=== PATIENT | female | born 1930 | race Caucasian/White ===

== ENCOUNTER 2020-04-24 13:39 | Outpatient (CLI) | payer SELFPAY | END 2020-04-24 13:40 | disposition critical access hospital (66) | LOC: EMS 13:39 | PROVIDERS: ATTEND Surgery | DX: M25.551 Pain in right hip (principal) | CPT/HCPCS: A0425; A0429 ==

== ENCOUNTER 2020-04-24 14:18 | Inpatient (IN) | payer SELFPAY ==
--- NOTE | 2020-04-24 14:39 | ED Physician Documentation ---
History of Present Illness - Stated complaint Stated Complaint: GLF - History obtained from History obtained from: Patient, Family, EMS - Additonal information Additional information: Patient is brought to the emergency department by her daughter after sustaining a ground-level fall at home. Patient was in the bathroom and forgot to pull her pants up and tried to walk, the daughter states. The patient has been struggling with dementia for some time, but her symptoms have been getting worse and worse. Patient is starting to not remember the fall, even though it just happened within the last hour, the daughter states. Patient has mainly complained of right hip pain. Daughter does not know if the patient hit her head, but the patient did not have any spinal complaints or head complaints. No other complaints at this time. Patient is Spanish speaking only, and daughter translates for her peer Review of Systems Ten Systems: 10 systems reviewed and negative Constitutional: reports: Reviewed and negative Eyes: reports: Reviewed and negative Ears: reports: Reviewed and negative Nose: reports: Reviewed and negative Throat: reports: Reviewed and negative Cardiac: reports: Reviewed and negative Respiratory: reports: Reviewed and negative GI: reports: Reviewed and negative : reports: Reviewed and negative Skin: reports: Reviewed and negative Musculoskeletal: reports: Joint pain Neurologic: reports: Reviewed and negative Psychiatric: reports: Reviewed and negative Endocrine: reports: Reviewed and negative Immunocompromised: reports: Reviewed and negative PD PAST MEDICAL HISTORY - Present Medications Home Medications: Ambulatory Orders Medication Instructions Recorded Confirmed No Known Home Medications 04/24/20 04/24/20 - Allergies Allergies/Adverse Reactions: Allergies Allergy/AdvReac Type Severity Reaction Status Date / Time No Known Drug Allergies Allergy Verified 04/24/20 14:42 PD ED PE NORMAL - Vitals Vital signs reviewed: Yes - General General: No acute distress, Well developed/nourished, Other (Patient is awake and talking.) - HEENT HEENT: Atraumatic, PERRL, EOMI, Moist mucous membranes - Neck Neck: Supple, no meningeal sign, No bony TTP - Cardiac Cardiac: RRR, No murmur, Strong equal pulses - Respiratory Respiratory: No respiratory distress, Clear bilaterally - Abdomen Abdomen: Soft, Non tender, Non distended - Back Back: Other (Patient has tenderness over her left lateral rib cage) - Derm Derm: Normal color, Warm and dry, No rash - Extremities Extremities: No deformity, No edema, No calf tenderness / cord, Other (Tenderness over right posterior hip, especially with any movement of the hip.) - 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, No motor deficit, No sensory deficit, Normal speech - Psych Psych: Normal mood, Normal affect Results - Vitals Vitals: Oxygen O2 Source Room air - EKG (time done) 1514 Rate: Rate (enter#) (86) Rhythm: NSR [place]: Normal Intervals: Normal CT, Prolonged QT (borderline) QRS: Normal Ischemia: Normal ST segments Compare to prior EKG: Old EKG unavailable Computer interpretation: Agree with computer - Labs Labs: Laboratory Tests 04/24/20 04/24/20 04/24/20 15:50 15:50 15:50 WBC 9.7 RBC 4.64 Hgb 10.9 L Hct 36.8 L MCV 79.3 L MCH 23.5 L MCHC 29.6 L RDW 15.2 H Plt Count 220 MPV 9.9 Neut # (Auto) 8.1 H Lymph # (Auto) 1.0 L [place] # (Auto) 0.5 Eos # (Auto) 0.0 Baso # (Auto) 0.0 Absolute Nucleated RBC 0.00 Nucleated RBC % 0.0 Sodium 136 Potassium 4.0 Chloride 101 Carbon Dioxide 23 Anion Gap 12.0 BUN 21 H Creatinine 0.8 Estimated GFR (MDRD) 68 L Glucose 137 H Calcium 9.0 Total Bilirubin 0.9 AST 18 ALT 11 Alkaline Phosphatase 70 Total Protein 6.8 Albumin 3.7 Globulin 3.1 Albumin/Globulin Ratio 1.2 Lipase 29 Blood Type Recheck O POSITIVE - Rads (name of study) R hip xr Radiology: Final report received, EMP read indepedently, See rad report (infratrochanteric fx.) PD MEDICAL DECISION MAKING - ED course Complexity details: reviewed results, re-evaluated patient, considered differential, d/w patient ED course: The patient was worked up with EKG, labs, head CT and x-rays of the chest/ribs and right hip. Work-up was negative, except for R hip fx. I spoke with Dr. Fontenot, who was precast concrete ironworker for ortho, and after a lengthy discussion with the pt's daughter, it was decided that the pt would be admitted, though family was still somewhat uncertain as to whether they wanted operative repair. Case was discussed with Dr. Spear, the hospitalist precast concrete ironworker, who agreed to admit to her service, with Dr. Fontenot in consult. Pt was found to be feeling better after a dose of Dilaudid. Departure - Departure Disposition: [facility] DC/Xfer Clinical Impression: Hip fracture Qualifiers: Encounter type: initial encounter Fracture type: closed Laterality: right Qualified Code(s): S72.001A - Fracture of unspecified part of neck of right femur, initial encounter for closed fracture Condition: Serious Discharge Date/Time: 04/24/20 18:07
[2020-04-24] MEDS ORDERED: SODIUM CHLORIDE 0.9% 1,000 ML IV STA (15:06)
--- NOTE | 2020-04-24 15:41 | XRAY Report ---
PROCEDURE: Hip w/Pelvis 2-3V RT INDICATIONS: fall/pain TECHNIQUE: AP pelvis with lateral views of the right hip. COMPARISON: None. FINDINGS: Bones: There is an infratrochanteric fracture of the proximal right femur. This associated mild media l displacement and varus angulation. Pelvic ring appears intact. No definite suspicious bony lesions . Visualized osseous structures appear osteopenic. Soft tissues: The visualized bowel gas pattern is normal. No suspicious soft tissue calcifications. IMPRESSION: 1. Infratrochanteric fracture of the proximal right femur. Reviewed by: Biju Cotto MD on 04/24/2020 3:40 PM PDT Approved by: Biju Cotto MD on 04/24/2020 3:40 PM PDT Station ID: [id number]
--- NOTE | 2020-04-24 15:45 | XRAY Report ---
PROCEDURE: Ribs w/PA Chest LT INDICATIONS: fall/pain TECHNIQUE: 2 views of the left ribs were acquired, along with a single view chest. COMPARISON: None. FINDINGS: Surgical changes and devices: None. Bones and chest wall: No displaced rib fracture identified. No suspicious bony lesions. Overlying s oft tissues appear unremarkable. Lungs and pleura: There is mild interstitial prominence. No focal consolidation or bone contusions. No pleural effusions or pneumothorax. Mediastinum: Mediastinal contours appear within normal limits given rotation. Heart size is normal. IMPRESSION: 1. No displaced rib fracture identified. 2. Mild interstitial prominence in the lungs likely represents chronic changes, versus mild interstit ial edema. Reviewed by: Biju Cotto MD on 04/24/2020 3:43 PM PDT Approved by: Biju Cotto MD on 04/24/2020 3:43 PM PDT Station ID: [id number]
--- NOTE | 2020-04-24 15:49 | CT Report ---
PROCEDURE: HEAD WO INDICATIONS: fall/confusion, possible head injury TECHNIQUE: Noncontrast 5 mm thick angled axial sections acquired from the foramen magnum to the vertex. For rad iation dose reduction, the following was used: automated exposure control, adjustment of mA and/or k V according to patient size. COMPARISON: None. FINDINGS: Image quality: Excellent. CSF spaces: There is mild cerebral volume loss with prominence of ventricles and sulci. Basal cister ns are patent. No extra-axial fluid collections. Brain: No intracranial hemorrhage, mass, or mass effect. There are periventricular and subcortical w tyshawn matter hypodensities consistent with mild chronic small vessel ischemic changes. Armando-white anabela er interface appears preserved. Skull and face: Calvarium and visualized facial bones are intact, without suspicious lesions. Sinuses: Visualized sinuses demonstrate mild mucosal thickening in the ethmoid, sphenoid, and maxill alex sinuses with a sinus retention cyst or mucosal polyp in the inferior left maxillary sinus. There is also an air-fluid level within the sphenoid sinuses suggestive of acute sinusitis. Mastoid air mily ls are clear. IMPRESSION: 1. No acute intracranial abnormality. 2. Mild chronic white matter small vessel ischemic changes and cerebral volume loss. 3. Sinus mucosal disease demonstrated including an air-fluid level in the sphenoid sinuses suggestive of acute sinusitis. Reviewed by: Biju Cotto MD on 04/24/2020 3:48 PM PDT Approved by: Biju Cotto MD on 04/24/2020 3:48 PM PDT Station ID: [id number]
[2020-04-24 16:21] LABS: BASOPHILS % (AUTO) 0.3 %; EOSINOPHILS % (AUTO) 0.1 %; HGB - HEMOGLOBIN 10.9 g/dL (12.0-16.0); LYMPHOCYTES % (AUTO) 10.4 %; MEAN CORPUSCULAR HEMOGLOBIN 23.5 pg (27.0-31.0); MEAN CORPUSCULAR HGB CONC 29.6 g/dL (32.0-36.0); MEAN CORPUSCULAR VOLUME 79.3 fL (81.0-99.0); MEAN PLATELET VOLUME 9.9 fL (7.9-10.8); MONOCYTES # (AUTO) 0.5 10^3/uL (0.0-1.0); MONOCYTES % (AUTO) 5.2 %; NEUTROPHILS # (AUTO) 8.1 10^3/uL (1.5-6.6); NEUTROPHILS % (AUTO) 83.6 %; PLT - PLATELET COUNT 220 10^3/uL (130-450); RED BLOOD COUNT 4.64 10^6/uL (4.20-5.40); RED CELL DISTRIBUTION WIDTH 15.2 % (12.0-15.0); WHITE BLOOD COUNT 9.7 x10^3/uL (4.8-10.8)
[2020-04-24] MEDS ORDERED: HYDROmorphone 1 MG/ML CARPUJECT IVP STA (16:22)
[2020-04-24 16:29] LABS: ALBUMIN 3.7 g/dL (3.2-5.5); ALBUMIN/GLOBULIN RATIO 1.2 (1.0-2.2); BILIRUBIN,TOTAL 0.9 mg/dL (0.2-1.0); CREATININE 0.8 mg/dL (0.4-1.0); TOTAL PROTEIN 6.8 g/dL (6.7-8.2)
[2020-04-24] MEDS ORDERED: SODIUM CHLORIDE FLUSH 0.9% 10 ML SYRINGE IVP PRN (17:11)
[2020-04-24] MEDS ORDERED: ONDANSETRON 4 MG/2 ML VIAL IVP PRN (17:11)
[2020-04-24] MEDS ORDERED: oxyCODONE 5 MG TABLET PO PRN (17:11)
--- NOTE | 2020-04-24 17:23 | HISTORY & PHYSICAL EXAMINATION ---
Chief Complaint - Chief Complaint Chief Complaint: fall History of Present Illness - Admitted From Admitted From:: ER - History Obtained From Records Reviewed: [facility] History obtained from: pt's daughter Exam Limitations: language, pt speak togolese and hx of dementia - History of Present Illness HPI Comment/Other: This is a 89 years old female with a past medical history significant for dementia without home medications, who bought by her daughter to ER complain of right hip and pelvic pain. Patient is Bulgarian speaking only, and daughter translates for her peer to help provider medical hx. Patient was in the bathroom and forgot to pull her pants up and tried to walk, and had a fall. pt denies loss of conscience, denies headache or other pain. CAT scan of the head, chest x-ray are unremarkable. X-ray of the hip reveals infratrochanteric fracture of the proximal right femur. Routine laboratory test show hemoglobin 10.9 otherwise unremarkable. Patient is afebrile and hemodynamic stable at this time. ER already called surgeon. pt's daughter report Surgeon already discussed with her for the care plan. Pt's daughter state because pt's advanced dementia, poor quality of life, and advanced age, now pt has a fall, she choose no surgery for pt, and hope to have hospice care for pt. History - Past Medical History Cardiovascular: reports: None Respiratory: reports: None Neuro: reports: Dementia Endocrine/Autoimmune: reports: None GI: reports: None LAY OUT TECHNICIAN: reports: None : reports: None HEENT: reports: None Psych: reports: None Musculoskeletal: reports: None Derm: reports: None MRSA Hx?: No - Family & Social History Family History Comment/Other: Patient could not provide family medical history because of her medical condition Meds/Allgy - Home Medications Home Medications: Ambulatory Orders Medication Instructions Recorded Confirmed No Known Home Medications 04/24/20 04/24/20 - Allergies Allergies/Adverse Reactions: Allergies Allergy/AdvReac Type Severity Reaction Status Date / Time No Known Drug Allergies Allergy Verified 04/24/20 14:42 Review of Systems - Other Findings Other Findings: Because the patient has advanced dementia, very poor historian, and language banner, pt could not provide ROS Exam - Vital Signs Vital Signs: Vital Signs x48h Temp Pulse Resp BP Pulse Ox 04/24/20 16:09 36.3 C L 90 20 131/85 H 99 04/24/20 14:20 37.5 C 82 16 116/71 98 - Physical Exam General Appearance: positive: No acute distress, Alert. negative: Lethargic Eyes Bilateral: positive: Normal inspection, No lid inflammation ENT: positive: ENT inspection nml, No signs of dehydration. negative: Purulent nasal drainage Neck: positive: Nml inspection, Thyroid nml, Trachea midline. negative: Thyromegaly, Stiff neck, Tracheal deviation Respiratory: positive: Chest non-tender, No respiratory distress, Breath sounds nml. negative: Wheezes, Rales, Rhonchi Cardiovascular: positive: Regular rate & rhythm, No murmur. negative: Irregularly irregular, Tachycardia, Bradycardia, Systolic murmur, Diastolic murmur Peripheral Pulses: positive: 2+ Abdomen: positive: Non-tender, Nml bowel sounds, No distention. negative: Tenderness, Guarding, Rebound Back: positive: Nml inspection Skin: positive: Color nml, No rash, Warm, Dry. negative: Cyanosis, Diaphoresis, Pallor Extremities: positive: Nml appearance. negative: Calf tenderness Neurologic/Psychiatric: positive: Sensation nml. negative: Weakness, Sensory loss, Facial droop, Slurred/abnml speech Conclusion/Plan - Problem List (1) Hip fracture, right Conclusion/Plan: Patient has mechanical fall in the home. X-rays show patient has a right femur head fracture. Patient has history of significantly dementia. Patient's daughter choose no surgery for patient, will focus pain control, comfort care. she hope to have hospice care for pt. Pain control, consult with social insurance adviser. (2) Dementia Conclusion/Plan: Patient has significant dementia, Poor quality of life, Now patient has a fall. We will continue support patient, discussed with the patient and the daughter for the care plan. (3) Encounter for hospice care Conclusion/Plan: discussed with pt's daughter for the care plan. Patient has significantly dementia, poor quality of life, advanced age, and had a fall. Patient's daughter want no surgery for pt and hope to have the hospice care for patient, but this is a late Monday, and No hospice care in the weekend. now focus on pain control, comfortable caring for patient. Consult with social work, will referral to hospice care. hopeful discharge patient with hospice care in Monday next week - Lab Results Fish Bones: 04/24/20 15:50 04/24/20 15:50 Core Measures - Anticipated LOS I expect patient to be DC'd or transferred within 96 hours.: Yes - DVT/VTE - Prophylaxis VTE/DVT Device ordered at admit?: Yes VTE/DVT Prophylaxis med ordered at admit?: Yes
[2020-04-24 17:51] LABS: ABSOLUTE RETICS # AUTO 0.033 10^6/uL (0.020-0.110); RED BLOOD COUNT 4.28 10^6/uL (4.20-5.40)
[2020-04-24 17:55] LABS: INR 1.1 (0.8-1.2); PT - PROTHROMBIN TIME 12.3 secs (9.9-12.6)
--- NOTE | 2020-04-24 18:07 | PHARMACY PROGRESS NOTE ---
- Best Possible Medication History Admit Date and Time: 04/24/20 1711 Processed by: Nursing Medication History completed: Yes As the person ultimately responsible for medication therapy, providers are able to order a medication from an existing home medication list in [facility] via the "Reconcile Routine" prior to Confirmation of that medication by information support project manager. Such practice is discouraged except when the physician, in their clinical judgment, deems that a medical need exists for a medication without regard to previous use.
[2020-04-24 18:14] LABS: % IRON SATURATION 17 % (20-50); IRON 67 ug/dL (28-170); TOTAL IRON BINDING CAPACITY 399 ug/dL (250-450); TRANSFERRIN 285 mg/dL (192-382)
[2020-04-24 18:43] LABS: FERRITIN 10.7 ng/mL (11.0-306.8)
[2020-04-24] MEDS: LACTATED RINGERS 1,000 ML IV SCH (19:48)
[2020-04-24] MEDS: MORPHINE 2 MG/ML CARPUJECT IVP PRN (21:25)
[2020-04-24 22:30] LABS: BILIRUBIN,URINE NEGATIVE (NEGATIVE); GLUCOSE, URINE (UA) NEGATIVE (NEGATIVE); KETONES,URINE (UA) 40 mg/dL (NEGATIVE); LEUKOCYTE ESTERASE, URINE NEGATIVE (NEGATIVE); NITRITE,URINE NEGATIVE (NEGATIVE); OCCULT BLOOD,URINE TRACE-INTA (NEGATIVE); PROTEIN,URINE NEGATIVE (NEGATIVE); UROBILINOGEN,URINE 0.2 (NORMAL) E.U./dL (NORMAL)
[2020-04-24 22:33] LABS: CLARITY,URINE CLOUDY (CLEAR)
[2020-04-24 22:35] LABS: BACTERIA,URINE Many /HPF (None Seen); RBC,URINE 0-5 /HPF (0-5); SQUAMOUS EPITHELIAL CELL,UR NONE SEEN (<= Few)
[2020-04-24] MEDS: SODIUM CHLORIDE FLUSH 0.9% 10 ML SYRINGE IVP SCH (23:49)
[2020-04-25] MEDS: LACTATED RINGERS 1,000 ML IV SCH ×2 (05:31→15:23)
[2020-04-25] MEDS: MORPHINE 2 MG/ML CARPUJECT IVP PRN ×2 (05:34→14:00)
[2020-04-25 06:35] LABS: BASOPHILS % (AUTO) 0.3 %; EOSINOPHILS % (AUTO) 0.2 %; HGB - HEMOGLOBIN 9.1 g/dL (12.0-16.0); LYMPHOCYTES # (AUTO) 1.8 10^3/uL (1.5-3.5); LYMPHOCYTES % (AUTO) 28.1 %; MEAN CORPUSCULAR HEMOGLOBIN 23.9 pg (27.0-31.0); MEAN CORPUSCULAR VOLUME 79.5 fL (81.0-99.0); MEAN PLATELET VOLUME 9.7 fL (7.9-10.8); MONOCYTES # (AUTO) 0.7 10^3/uL (0.0-1.0); MONOCYTES % (AUTO) 10.4 %; NEUTROPHILS # (AUTO) 3.8 10^3/uL (1.5-6.6); NEUTROPHILS % (AUTO) 60.8 %; PLT - PLATELET COUNT 168 10^3/uL (130-450); RED BLOOD COUNT 3.81 10^6/uL (4.20-5.40); RED CELL DISTRIBUTION WIDTH 15.3 % (12.0-15.0); WHITE BLOOD COUNT 6.2 x10^3/uL (4.8-10.8)
[2020-04-25 06:44] LABS: CALCIUM 8.3 mg/dL (8.5-10.3); CREATININE 0.7 mg/dL (0.4-1.0)
--- NOTE | 2020-04-25 07:25 | PROVIDER PROGRESS NOTE ---
Subjective - Prog Note Date Prog Note Date: 04/25/20 Prog Note Time: 07:25 - Subjective Subjective: Seen by orthopedics. Family still declines surgery. Comfort measures only.Family decided this after she was admitted. Unfortunately hospice is not available over the weekend for urgent/emergent openings. Current Medications - Current Medications Current Medications: Active Medications Lactated Ringer's (Lr) 1,000 mls @ 100 mls/hr IV .Q10H [facility] Last Admin: 04/25/20 05:31 Dose: 100 mls/hr Documented by: Morphine Sulfate (Morphine (Carpuject)) 2 mg IVP Q2HR PRN PRN Reason: PAIN Last Admin: 04/25/20 05:34 Dose: 2 mg Documented by: Morphine Sulfate (Roxanol) 5 mg PO Q4HR PRN PRN Reason: PAIN Ondansetron HCl (Zofran Inj) 4 mg IVP Q6HR PRN PRN Reason: Nausea / Vomiting Last Admin: 04/24/20 20:44 Dose: 4 mg Documented by: Oxycodone HCl (Roxicodone) 5 mg PO Q4HR PRN PRN Reason: Pain 5 to 7 Sodium Chloride (Normal Saline Flush 0.9%) 10 ml IVP PRN PRN PRN Reason: NEEDED PER PROVIDER ORDERS Sodium Chloride (Normal Saline Flush 0.9%) 10 ml IVP 0100,0900,1700 [facility] Last Admin: 04/24/20 23:49 Dose: Not Given Documented by: No Known Home Medications 04/24/20 Objective - Vital Signs/Intake & Output Reviewed Vital Signs: Yes Vital Signs: Vital Signs x48h Temp Pulse Pulse Resp BP Pulse Ox 04/25/20 05:02 36.8 C 97 16 95 04/24/20 23:34 36.8 C 97 16 108/63 95 Intake & Output: Intake & Output 04/22/20 04/23/20 04/24/20 04/25/20 23:59 23:59 23:59 23:59 Intake Total 1000 971.667 Output Total 280 175 Balance 720 796.667 - Objective General Appearance: positive: Mild distress (Pain seems to be controlled by the small amount given to her of pain medicines) Eyes Bilateral: positive: PERRL, EOMI ENT: positive: Pharynx nml Neck: positive: No JVD Respiratory: positive: Chest non-tender, No respiratory distress. negative: Wheezes, Rales, Rhonchi Cardiovascular: positive: Regular rate & rhythm. negative: Gallop/S4, Friction rub Abdomen: positive: Non-tender, No organomegaly, Nml bowel sounds, No distention Skin: positive: Warm, Dry, Pallor Extremities: positive: Other (Cannot move right hip. Externally rotated. Shortened.Comfortable unless you move her.) Neurologic/Psychiatric: positive: CN's nml (2-12), Motor nml, Disoriented to person, Disoriented to place, Disoriented to time - Lab Results Fish Bones: 04/25/20 06:10 04/25/20 06:30 Other Labs: Lab Results x24hrs 04/25/20 04/25/20 04/24/20 Range/Units 06:30 06:10 22:05 WBC 6.2 (4.8-10.8) x10^3/uL RBC 3.81 L (4.20-5.40) 10^6/uL Hgb 9.1 L (12.0-16.0) g/dL Hct 30.3 L (37.0-47.0) % MCV 79.5 L (81.0-99.0) fL MCH 23.9 L (27.0-31.0) pg MCHC 30.0 L (32.0-36.0) g/dL RDW 15.3 H (12.0-15.0) % Plt Count 168 (130-450) 10^3/uL MPV 9.7 (7.9-10.8) fL Reticulocyte % (Auto) (0.5-2.3) % Neut # (Auto) 3.8 (1.5-6.6) 10^3/uL Lymph # (Auto) 1.8 (1.5-3.5) 10^3/uL [place] # (Auto) 0.7 (0.0-1.0) 10^3/uL Eos # (Auto) 0.0 (0.0-0.7) 10^3/uL Baso # (Auto) 0.0 (0.0-0.1) 10^3/uL Absolute Nucleated RBC 0.00 x10^3/uL Nucleated RBC % 0.0 /100WBC Absolute Retic (0.020-0.110) 10^6/uL PT (9.9-12.6) secs INR (0.8-1.2) Sodium 137 (135-145) mmol/L Potassium 4.0 (3.5-5.0) mmol/L Chloride 106 (101-111) mmol/L Carbon Dioxide 18 L (21-32) mmol/L Anion Gap 13.0 (6-13) BUN 17 (6-20) mg/dL Creatinine 0.7 (0.4-1.0) mg/dL Estimated GFR (MDRD) 79 L (>89) Glucose 116 H (70-100) mg/dL Calcium 8.3 L (8.5-10.3) mg/dL Iron (28-170) ug/dL TIBC (250-450) ug/dL % Saturation (20-50) % Transferrin (192-382) mg/dL Ferritin (11.0-306.8) ng/mL Total Bilirubin (0.2-1.0) mg/dL AST (10-42) IU/L ALT (10-60) IU/L Alkaline Phosphatase (42-121) IU/L Lactate Dehydrogenase (91-225) IU/L Total Protein (6.7-8.2) g/dL Albumin (3.2-5.5) g/dL Globulin (2.1-4.2) g/dL Albumin/Globulin Ratio (1.0-2.2) Lipase (22-51) U/L Vitamin B12 (180-914) pg/mL Urine Color YELLOW Urine Clarity CLOUDY (CLEAR) Urine pH 6.0 (5.0-7.5) PH Ur Specific [place] 1.025 (1.002-1.030) Urine Protein NEGATIVE (NEGATIVE) mg/dL Urine Glucose (UA) NEGATIVE (NEGATIVE) mg/dL Urine Ketones 40 H (NEGATIVE) mg/dL Urine Occult Blood TRACE-INTA (NEGATIVE) Urine Nitrite NEGATIVE (NEGATIVE) Urine Bilirubin NEGATIVE (NEGATIVE) Urine Urobilinogen 0.2 (NORMAL) (NORMAL) E.U./dL Ur Leukocyte Esterase NEGATIVE (NEGATIVE) Urine RBC 0-5 (0-5) /HPF Urine WBC 4-5 (0-5) /HPF Ur Squamous Epith Cells NONE SEEN (<= Few) Urine Bacteria Many H (None Seen) /HPF Urine Culture Comments INDICATED Blood Type Blood Type Recheck Antibody Screen 04/24/20 04/24/20 04/24/20 Range/Units 17:42 17:42 17:42 WBC (4.8-10.8) x10^3/uL RBC (4.20-5.40) 10^6/uL Hgb (12.0-16.0) g/dL Hct (37.0-47.0) % MCV (81.0-99.0) fL MCH (27.0-31.0) pg MCHC (32.0-36.0) g/dL RDW (12.0-15.0) % Plt Count (130-450) 10^3/uL MPV (7.9-10.8) fL Reticulocyte % (Auto) (0.5-2.3) % Neut # (Auto) (1.5-6.6) 10^3/uL Lymph # (Auto) (1.5-3.5) 10^3/uL [place] # (Auto) (0.0-1.0) 10^3/uL Eos # (Auto) (0.0-0.7) 10^3/uL Baso # (Auto) (0.0-0.1) 10^3/uL Absolute Nucleated RBC x10^3/uL Nucleated RBC % /100WBC Absolute Retic (0.020-0.110) 10^6/uL PT (9.9-12.6) secs INR (0.8-1.2) Sodium (135-145) mmol/L Potassium (3.5-5.0) mmol/L Chloride (101-111) mmol/L Carbon Dioxide (21-32) mmol/L Anion Gap (6-13) BUN (6-20) mg/dL Creatinine (0.4-1.0) mg/dL Estimated GFR (MDRD) (>89) Glucose (70-100) mg/dL Calcium (8.5-10.3) mg/dL Iron 67 (28-170) ug/dL TIBC 399 (250-450) ug/dL % Saturation 17 L (20-50) % Transferrin 285 (192-382) mg/dL Ferritin 10.7 L (11.0-306.8) ng/mL Total Bilirubin (0.2-1.0) mg/dL AST (10-42) IU/L ALT (10-60) IU/L Alkaline Phosphatase (42-121) IU/L Lactate Dehydrogenase 127 (91-225) IU/L Total Protein (6.7-8.2) g/dL Albumin (3.2-5.5) g/dL Globulin (2.1-4.2) g/dL Albumin/Globulin Ratio (1.0-2.2) Lipase (22-51) U/L Vitamin B12 180 (180-914) pg/mL Urine Color Urine Clarity (CLEAR) Urine pH (5.0-7.5) PH Ur Specific [place] (1.002-1.030) Urine Protein (NEGATIVE) mg/dL Urine Glucose (UA) (NEGATIVE) mg/dL Urine Ketones (NEGATIVE) mg/dL Urine Occult Blood (NEGATIVE) Urine Nitrite (NEGATIVE) Urine Bilirubin (NEGATIVE) Urine Urobilinogen (NORMAL) E.U./dL Ur Leukocyte Esterase (NEGATIVE) Urine RBC (0-5) /HPF Urine WBC (0-5) /HPF Ur Squamous Epith Cells (<= Few) Urine Bacteria (None Seen) /HPF Urine Culture Comments Blood Type Blood Type Recheck Antibody Screen 04/24/20 04/24/20 04/24/20 Range/Units 17:42 17:42 17:42 WBC (4.8-10.8) x10^3/uL RBC 4.28 (4.20-5.40) 10^6/uL Hgb (12.0-16.0) g/dL Hct (37.0-47.0) % MCV (81.0-99.0) fL MCH (27.0-31.0) pg MCHC (32.0-36.0) g/dL RDW (12.0-15.0) % Plt Count (130-450) 10^3/uL MPV (7.9-10.8) fL Reticulocyte % (Auto) 0.77 (0.5-2.3) % Neut # (Auto) (1.5-6.6) 10^3/uL Lymph # (Auto) (1.5-3.5) 10^3/uL [place] # (Auto) (0.0-1.0) 10^3/uL Eos # (Auto) (0.0-0.7) 10^3/uL Baso # (Auto) (0.0-0.1) 10^3/uL Absolute Nucleated RBC x10^3/uL Nucleated RBC % /100WBC Absolute Retic 0.033 (0.020-0.110) 10^6/uL PT 12.3 (9.9-12.6) secs INR 1.1 (0.8-1.2) Sodium (135-145) mmol/L Potassium (3.5-5.0) mmol/L Chloride (101-111) mmol/L Carbon Dioxide (21-32) mmol/L Anion Gap (6-13) BUN (6-20) mg/dL Creatinine (0.4-1.0) mg/dL Estimated GFR (MDRD) (>89) Glucose (70-100) mg/dL Calcium (8.5-10.3) mg/dL Iron (28-170) ug/dL TIBC (250-450) ug/dL % Saturation (20-50) % Transferrin (192-382) mg/dL Ferritin (11.0-306.8) ng/mL Total Bilirubin (0.2-1.0) mg/dL AST (10-42) IU/L ALT (10-60) IU/L Alkaline Phosphatase (42-121) IU/L Lactate Dehydrogenase (91-225) IU/L Total Protein (6.7-8.2) g/dL Albumin (3.2-5.5) g/dL Globulin (2.1-4.2) g/dL Albumin/Globulin Ratio (1.0-2.2) Lipase (22-51) U/L Vitamin B12 (180-914) pg/mL Urine Color Urine Clarity (CLEAR) Urine pH (5.0-7.5) PH Ur Specific [place] (1.002-1.030) Urine Protein (NEGATIVE) mg/dL Urine Glucose (UA) (NEGATIVE) mg/dL Urine Ketones (NEGATIVE) mg/dL Urine Occult Blood (NEGATIVE) Urine Nitrite (NEGATIVE) Urine Bilirubin (NEGATIVE) Urine Urobilinogen (NORMAL) E.U./dL Ur Leukocyte Esterase (NEGATIVE) Urine RBC (0-5) /HPF Urine WBC (0-5) /HPF Ur Squamous Epith Cells (<= Few) Urine Bacteria (None Seen) /HPF Urine Culture Comments Blood Type O POSITIVE Blood Type Recheck Antibody Screen NEGATIVE 04/24/20 04/24/20 04/24/20 Range/Units 15:50 15:50 15:50 WBC 9.7 (4.8-10.8) x10^3/uL RBC 4.64 (4.20-5.40) 10^6/uL Hgb 10.9 L (12.0-16.0) g/dL Hct 36.8 L (37.0-47.0) % MCV 79.3 L (81.0-99.0) fL MCH 23.5 L (27.0-31.0) pg MCHC 29.6 L (32.0-36.0) g/dL RDW 15.2 H (12.0-15.0) % Plt Count 220 (130-450) 10^3/uL MPV 9.9 (7.9-10.8) fL Reticulocyte % (Auto) (0.5-2.3) % Neut # (Auto) 8.1 H (1.5-6.6) 10^3/uL Lymph # (Auto) 1.0 L (1.5-3.5) 10^3/uL [place] # (Auto) 0.5 (0.0-1.0) 10^3/uL Eos # (Auto) 0.0 (0.0-0.7) 10^3/uL Baso # (Auto) 0.0 (0.0-0.1) 10^3/uL Absolute Nucleated RBC 0.00 x10^3/uL Nucleated RBC % 0.0 /100WBC Absolute Retic (0.020-0.110) 10^6/uL PT (9.9-12.6) secs INR (0.8-1.2) Sodium 136 (135-145) mmol/L Potassium 4.0 (3.5-5.0) mmol/L Chloride 101 (101-111) mmol/L Carbon Dioxide 23 (21-32) mmol/L Anion Gap 12.0 (6-13) BUN 21 H (6-20) mg/dL Creatinine 0.8 (0.4-1.0) mg/dL Estimated GFR (MDRD) 68 L (>89) Glucose 137 H (70-100) mg/dL Calcium 9.0 (8.5-10.3) mg/dL Iron (28-170) ug/dL TIBC (250-450) ug/dL % Saturation (20-50) % Transferrin (192-382) mg/dL Ferritin (11.0-306.8) ng/mL Total Bilirubin 0.9 (0.2-1.0) mg/dL AST 18 (10-42) IU/L ALT 11 (10-60) IU/L Alkaline Phosphatase 70 (42-121) IU/L Lactate Dehydrogenase (91-225) IU/L Total Protein 6.8 (6.7-8.2) g/dL Albumin 3.7 (3.2-5.5) g/dL Globulin 3.1 (2.1-4.2) g/dL Albumin/Globulin Ratio 1.2 (1.0-2.2) Lipase 29 (22-51) U/L Vitamin B12 (180-914) pg/mL Urine Color Urine Clarity (CLEAR) Urine pH (5.0-7.5) PH Ur Specific [place] (1.002-1.030) Urine Protein (NEGATIVE) mg/dL Urine Glucose (UA) (NEGATIVE) mg/dL Urine Ketones (NEGATIVE) mg/dL Urine Occult Blood (NEGATIVE) Urine Nitrite (NEGATIVE) Urine Bilirubin (NEGATIVE) Urine Urobilinogen (NORMAL) E.U./dL Ur Leukocyte Esterase (NEGATIVE) Urine RBC (0-5) /HPF Urine WBC (0-5) /HPF Ur Squamous Epith Cells (<= Few) Urine Bacteria (None Seen) /HPF Urine Culture Comments Blood Type Blood Type Recheck O POSITIVE Antibody Screen ABX Reporting Has patient been on IV antibiotics over the past 48 hours?: No Assessment/Plan - Problem List (1) Hip fracture, right Impression: 04/25: one dose of MS last night and one this am. she does cry out Move her leg. Plan: pain control and return to home since daughter (POA) has declined surgery. Social work consult written for. 04/24:Patient has mechanical fall in the home. X-rays show patient has a right femur head fracture. Patient has history of significantly dementia. Patient's daughter choose no surgery for patient, will focus pain control, comfort care. she hope to have hospice care for pt. Pain control, consult with school social worker. (2) Dementia Conclusion/Plan: 04/25:With reduced quality of life over time. Family is focusing on comfort measures only.No behavioral disturbances 04/24:Patient has significant dementia, Poor quality of life, Now patient has a fall. We will continue support patient, discussed with the patient and the daughter for the care plan. (3) Encounter for hospice care Conclusion/Plan: 04/25: Social work and case management are working on her case. If she has been living in this country for at least 5 years, she can have access to Medicaid. With Medicaid pending she can be accepted to hospice. If she is not been here for 5 years she may not be able to get hospice but will have to work with [employer], etc. to set up equipment at home. We will wait to hear from case managem ent and social work. 04/24: discussed with pt's daughter for the care plan. Patient has significantly dementia, poor quality of life, advanced age, and had a fall. Patient's daughter want no surgery for pt and hope to have the hospice care for patient, but this is a late Monday, and No hospice care in the weekend. now focus on pain control, comfortable caring for patient. Consult with social work, will referral to hospice care. hopeful discharge patient with hospice care in Monday next week
[2020-04-25] MEDS: SODIUM CHLORIDE FLUSH 0.9% 10 ML SYRINGE IVP SCH ×2 (10:10→16:24)
[2020-04-25 15:39] VITALS: BP 111/60
[2020-04-26] MEDS: SODIUM CHLORIDE FLUSH 0.9% 10 ML SYRINGE IVP SCH ×3 (01:00→16:03)
[2020-04-26] MEDS: LACTATED RINGERS 1,000 ML IV SCH ×3 (01:00→22:30)
[2020-04-26 08:02] LABS: BASOPHILS % (AUTO) 0.5 %; EOSINOPHILS % (AUTO) 0.4 %; HGB - HEMOGLOBIN 8.8 g/dL (12.0-16.0); LYMPHOCYTES # (AUTO) 1.4 10^3/uL (1.5-3.5); LYMPHOCYTES % (AUTO) 25.7 %; MEAN CORPUSCULAR HGB CONC 30.4 g/dL (32.0-36.0); MEAN CORPUSCULAR VOLUME 78.7 fL (81.0-99.0); MEAN PLATELET VOLUME 10.1 fL (7.9-10.8); MONOCYTES # (AUTO) 0.5 10^3/uL (0.0-1.0); MONOCYTES % (AUTO) 9.6 %; NEUTROPHILS # (AUTO) 3.5 10^3/uL (1.5-6.6); NEUTROPHILS % (AUTO) 62.9 %; PLT - PLATELET COUNT 148 10^3/uL (130-450); RED BLOOD COUNT 3.67 10^6/uL (4.20-5.40); RED CELL DISTRIBUTION WIDTH 15.2 % (12.0-15.0); WHITE BLOOD COUNT 5.6 x10^3/uL (4.8-10.8)
[2020-04-26 08:11] LABS: CALCIUM 8.5 mg/dL (8.5-10.3); CREATININE 0.6 mg/dL (0.4-1.0)
--- NOTE | 2020-04-26 08:23 | CONSULTATION NOTE ---
DATE OF SERVICE: 04/24/2020 Physician: Yovanny Fontenot MD REFERRING PHYSICIAN: Dr. Judith Sotomayor of the emergency room department HISTORY OF PRESENT ILLNESS: Patient is an 89-year-old Afghan woman who does not speak Hebrew, who apparently fell at home on the day of her admission. She was noted to have a deformity to her leg, a s well as painful motion to the leg. She was unable to stand or weightbear. She was taken by her da ughter to the emergency room here at [facility] for evaluation of her injury. The jayde ent is a demented woman who has been living with her daughter now for some years. Evaluation in the emergency room department revealed a reverse obliquity intertrochanteric hip fractu re on the right side. Patient was subsequently admitted to the hospital with orthopedic consultation with regard to treatment options. PHYSICAL EXAMINATION: Patient's right leg is shortened and externally rotated as one would expect. Painful range of motion of her leg was noted. Patient moves her toes on command. Sensation appeared to be intact as well. Good capillary filling noted. IMAGING: Review of x-rays that were taken shows evidence of a reverse obliquity intertrochanteric hi p fracture, right side. ASSESSMENT 1. Closed displaced right intertrochanteric hip fracture - reverse obliquity pattern. 2. Dementia. PLAN: Discussed with the daughter some preliminary ideas, as far as treatment for her mother's fract ure. We have tentatively scheduled her for surgical fixation of her fracture tomorrow morning, morning. ADDENDUM: After patient's admission, the daughter who has the power of managing attorney for her mother, spok e with the rest of her family, and they have decided to proceed with only comfort care measures. The y do not want surgical fixation of her hip fracture at this point. TD: 04/25/2020 14:42
[2020-04-26] MEDS: MORPHINE SOL 10 MG/0.5 ML ORAL SYRINGE PO PRN (10:36)
--- NOTE | 2020-04-26 11:17 | PROVIDER PROGRESS NOTE ---
Subjective - Prog Note Date Prog Note Date: 04/26/20 Prog Note Time: 11:15 - Subjective Subjective: Daughter at the bedside. She has asked for some specific things: 1. She would like a copy of all of her mother's labs. She is willing to sign records release to be able to look at them. She does not really need them for anything other than to be able to review them on her own. 2. She feels that waking her mother up for vital signs, lab draws, or asking her to eat is unnecessary. Mom has her own schedule. Waking her up only destabilizes her dementia and behavior. She is asking that we stop vital signs, unnecessary interruptions, blood draws, treat only with comfort measures of Tylenol/Ativan/morphine/Roxanol and keep the lactated Ringer's IV fluids going.Daughter reports that she was yelling all day yesterday. But when I look at the medical administration record to see how much opiates were given, minimal morphine and Maxalt were given.Nursing reports that the patient did yell occasionally if he moved here but for the most part remained comfortable. We are still in the midst of working however again to get this unfortunate lady home. Daughter does not have the finances to allow for respite care, senior living facility care. She will have to go home with some form of comfort measure medications. She is hoping that hospice will be able to help as a free service. Because mom does not qualify for any benefits, she would not qualify for the hospice benefit under Medicaid or Medicare. Daughter is looking to get a hospital bed from an organization such as a [facility]. She also feels helpless and does not know how to do simple things like turning her mother, bathe her mother, etc. Current Medications - Current Medications Current Medications: Active Medications Lactated Ringer's (Lr) 1,000 mls @ 100 mls/hr IV .Q10H [facility] Last Admin: 04/26/20 01:00 Dose: 100 mls/hr Documented by: Lorazepam (Ativan) 0.5 mg SL Q6H PRN PRN Reason: Anxiety Morphine Sulfate (Morphine (Carpuject)) 2 mg IVP Q2HR PRN PRN Reason: PAIN Last Admin: 04/25/20 14:00 Dose: 2 mg Documented by: Morphine Sulfate (Roxanol) 5 mg PO Q4HR PRN PRN Reason: PAIN Last Admin: 04/26/20 10:36 Dose: 5 mg Documented by: Ondansetron HCl (Zofran Inj) 4 mg IVP Q6HR PRN PRN Reason: Nausea / Vomiting Last Admin: 04/24/20 20:44 Dose: 4 mg Documented by: Oxycodone HCl (Roxicodone) 5 mg PO Q4HR PRN PRN Reason: Pain 5 to 7 Sodium Chloride (Normal Saline Flush 0.9%) 10 ml IVP PRN PRN PRN Reason: NEEDED PER PROVIDER ORDERS Sodium Chloride (Normal Saline Flush 0.9%) 10 ml IVP 0100,0900,1700 [facility] Last Admin: 04/26/20 09:51 Dose: Not Given Documented by: No Known Home Medications 04/24/20 Objective - Vital Signs/Intake & Output Reviewed Vital Signs: Yes Vital Signs: Vital Signs x48h Temp Resp 04/26/20 08:00 36.3 C L 16 04/26/20 03:47 18 Intake & Output: Intake & Output 04/23/20 04/24/20 04/25/20 04/26/20 23:59 23:59 23:59 23:59 Intake Total 1000 1998.334 961.667 Output Total 280 1250 1050 Balance 720 748.334 -88.333 - Objective General Appearance: positive: Alert, Mild distress, Other (She is completely unaware of where she is. I am relying on the daughter to translate since the patient does not speak any Swedish. She appears to be an elderly demented person. Daughter states that she does not know where she is, why she is here, and does not even recognize her.) Eyes Bilateral: positive: PERRL, EOMI ENT: positive: No signs of dehydration Neck: positive: No JVD. negative: Stiff neck Respiratory: positive: Chest non-tender. negative: Wheezes, Rales, Rhonchi Cardiovascular: positive: Regular rate & rhythm. negative: Gallop/S4, Friction rub Abdomen: positive: Non-tender, No organomegaly, Nml bowel sounds, No distention Extremities: positive: No pedal edema Neurologic/Psychiatric: positive: CN's nml (2-12), Motor nml, Disoriented to person, Disoriented to place, Disoriented to time - Lab Results Fish Bones: 04/26/20 07:38 04/26/20 07:38 Other Labs: Lab Results x24hrs 04/26/20 04/26/20 Range/Units 07:38 07:38 WBC 5.6 (4.8-10.8) x10^3/uL RBC 3.67 L (4.20-5.40) 10^6/uL Hgb 8.8 L (12.0-16.0) g/dL Hct 28.9 L (37.0-47.0) % MCV 78.7 L (81.0-99.0) fL MCH 24.0 L (27.0-31.0) pg MCHC 30.4 L (32.0-36.0) g/dL RDW 15.2 H (12.0-15.0) % Plt Count 148 (130-450) 10^3/uL MPV 10.1 (7.9-10.8) fL Neut # (Auto) 3.5 (1.5-6.6) 10^3/uL Lymph # (Auto) 1.4 L (1.5-3.5) 10^3/uL [place] # (Auto) 0.5 (0.0-1.0) 10^3/uL Eos # (Auto) 0.0 (0.0-0.7) 10^3/uL Baso # (Auto) 0.0 (0.0-0.1) 10^3/uL Absolute Nucleated RBC 0.00 x10^3/uL Nucleated RBC % 0.0 /100WBC Sodium 138 (135-145) mmol/L Potassium 3.5 (3.5-5.0) mmol/L Chloride 104 (101-111) mmol/L Carbon Dioxide 25 (21-32) mmol/L Anion Gap 9.0 (6-13) BUN 9 (6-20) mg/dL Creatinine 0.6 (0.4-1.0) mg/dL Estimated GFR (MDRD) 94 (>89) Glucose 108 H (70-100) mg/dL Calcium 8.5 (8.5-10.3) mg/dL ABX Reporting Has patient been on IV antibiotics over the past 48 hours?: No Assessment/Plan - Problem List (1) Hip fracture, right Impression: 9/20:No change in pain control at this time. Will transition to comfort measures with no vital signs, no labs. Add Ativan sublingual, continue Roxanol, morphine. IV fluids for hydration at her request. 04/25: one dose of MS last night and one this am. she does cry out Move her leg. Plan: pain control and return to home since daughter (GLENN) has declined surgery. Social work consult written for. 04/24:Patient has mechanical fall in the home. X-rays show patient has a right femur head fracture. Patient has history of significantly dementia. Patient's daughter choose no surgery for patient, will focus pain control, comfort care. she hope to have hospice care for pt. Pain control, consult with certified social workers in health care. (2) Dementia Conclusion/Plan: 04/26: As above 04/25:With reduced quality of life over time. Family is focusing on comfort measures only.No behavioral disturbances 04/24:Patient has significant dementia, Poor quality of life, Now patient has a fall. We will continue support patient, discussed with the patient and the daughter for the care plan. (3) Encounter for hospice care Conclusion/Plan: 04/26: They are continuing to work on a discharge disposition for her. In the meantime I have asked nursing to start educating the daughter on how to do log roll's, bed baths, assessment for pain so that she can give her mom her pain medicines when she takes her home. Daughter continues to state that she does not have the finances to hire private duty care, respite care, or SNF placement. She is overwhelmed. Right now the patient has a Miller catheter. That may have to be discontinued depending on the daughter's comfort level with changing Miller bag. 04/25: Social work and case management are working on her case. If she has been living in this country for at least 5 years, she can have access to Medicaid. With Medicaid pending she can be accepted to hospice. If she is not been here for 5 years she may not be able to get hospice but will have to work with [facility], etc. to set up equipment at home. We will wait to hear from case management and social work. 04/24: discussed with pt's daughter for the care plan. Patient has significantly dementia, poor quality of life, advanced age, and had a fall. Patient's daughter want no surgery for pt and hope to have the hospice care for patient, but this is a late Monday, and No hospice care in the weekend. now focus on pain control, comfortable caring for patient. Consult with social work, will referral to hospice care. hopeful discharge patient with hospice care in Monday next week (4) E coli UTI Fosfomycin 1 dose orally.
[2020-04-26] MEDS ORDERED: FOSFOMYCIN TROMETHAMINE 3 GM PACKET PO ONE (12:44)
[2020-04-26] MEDS ORDERED: levoFLOXacin 250 MG TABLET PO SCH (13:00)
[2020-04-27] MEDS: LACTATED RINGERS 1,000 ML IV SCH ×2 (08:37→18:40)
[2020-04-27] MEDS: SODIUM CHLORIDE FLUSH 0.9% 10 ML SYRINGE IVP SCH ×3 (08:55→17:35)
[2020-04-27] MEDS: MORPHINE SOL 10 MG/0.5 ML ORAL SYRINGE PO PRN (10:34)
[2020-04-27] MEDS: LORazepam 0.5 MG TABLET SL PRN (10:35)
[2020-04-27] MEDS: MULTIVITAMIN W/MINERALS TABLET PO SCH (11:59)
[2020-04-27] MEDS: CYANOCOBALAMIN 500 MCG TABLET PO SCH (11:59)
[2020-04-27] MEDS: MORPHINE 2 MG/ML CARPUJECT IVP PRN (14:18)
--- NOTE | 2020-04-27 14:49 | PROVIDER PROGRESS NOTE ---
Subjective - Prog Note Date Prog Note Date: 04/27/20 Prog Note Time: 15:11 - Subjective Subjective: she is sitting up in bed. smiles. doesn't understand even if its translated by daughter. Current Medications - Current Medications Current Medications: Active Medications Cyanocobalamin (Vitamin B-12) 500 mcg PO DAILY [facility] Last Admin: 04/27/20 11:59 Dose: 500 mcg Documented by: Lactated Ringer's (Lr) 1,000 mls @ 100 mls/hr IV .Q10H [facility] Last Admin: 04/27/20 08:37 Dose: 100 mls/hr Documented by: Lorazepam (Ativan) 0.5 mg SL Q6H PRN PRN Reason: Anxiety Last Admin: 04/27/20 10:35 Dose: 0.5 mg Documented by: Morphine Sulfate (Morphine (Carpuject)) 2 mg IVP Q2HR PRN PRN Reason: PAIN Last Admin: 04/27/20 14:18 Dose: 2 mg Documented by: Morphine Sulfate (Roxanol) 5 mg PO Q4HR PRN PRN Reason: PAIN Last Admin: 04/27/20 10:34 Dose: 5 mg Documented by: Multivitamins/Minerals (Theragran M) 1 tab PO DAILYWM [facility] Last Admin: 04/27/20 11:59 Dose: 1 tab Documented by: Ondansetron HCl (Zofran Inj) 4 mg IVP Q6HR PRN PRN Reason: Nausea / Vomiting Last Admin: 04/24/20 20:44 Dose: 4 mg Documented by: Oxycodone HCl (Roxicodone) 5 mg PO Q4HR PRN PRN Reason: Pain 5 to 7 Sodium Chloride (Normal Saline Flush 0.9%) 10 ml IVP PRN PRN PRN Reason: NEEDED PER PROVIDER ORDERS Sodium Chloride (Normal Saline Flush 0.9%) 10 ml IVP 0100,0900,1700 [facility] Last Admin: 04/27/20 10:36 Dose: Not Given Documented by: No Known Home Medications 04/24/20 Objective - Vital Signs/Intake & Output Reviewed Vital Signs: Yes Intake & Output: Intake & Output 04/24/20 04/25/20 04/26/20 04/27/20 23:59 23:59 23:59 23:59 Intake Total 1000 7705.987 0632.667 1100 Output Total 280 1250 1650 1900 Balance 720 646.856 3677.667 -800 - Objective General Appearance: positive: Alert, Mild distress Eyes Bilateral: positive: PERRL Neck: positive: No JVD Respiratory: positive: Chest non-tender. negative: Wheezes, Rales, Rhonchi Cardiovascular: positive: Regular rate & rhythm. negative: Gallop/S4, Friction rub Abdomen: positive: Non-tender, No organomegaly, Nml bowel sounds Skin: positive: Warm, Dry Neurologic/Psychiatric: positive: Disoriented to person, Disoriented to place, Disoriented to time, Weakness - Lab Results Fish Bones: 04/26/20 07:38 04/26/20 07:38 ABX Reporting Has patient been on IV antibiotics over the past 48 hours?: No Assessment/Plan - Problem List (1) Hip fracture, right Impression: 04/27: no change. expect slow steady deterioration over time with decreasing po intake, more pain, dehydration . 04/26:No change in pain control at this time. Will transition to comfort measures with no vital signs, no labs. Add Ativan sublingual, continue Roxanol, morphine. IV fluids for hydration at her request. 04/25: one dose of MS last night and one this am. she does cry out Move her leg. Plan: pain control and return to home since daughter (GLENN) has declined surgery. Social work consult written for. 04/24:Patient has mechanical fall in the home. X-rays show patient has a right femur head fracture. Patient has history of significantly dementia. Patient's daughter choose no surgery for patient, will focus pain control, comfort care. she hope to have hospice care for pt. Pain control, consult with licensed master social worker. (2) Dementia Conclusion/Plan: 04/26 and 04/27: As above 04/25:With reduced quality of life over time. Family is focusing on comfort measures only.No behavioral disturbances 04/24:Patient has significant dementia, Poor quality of life, Now patient has a fall. We will continue support patient, discussed with the patient and the daughter for the care plan. (3) Encounter for hospice care Conclusion/Plan: 04/27: community placement worker approached the [facility] for designated hospice care. There is initial tentative approval that hospice will be paid for by the fund. Assess we are making arrangements for her to be discharged to home with hospice. I have put in the hospice referral. 04/26: They are continuing to work on a discharge disposition for her. In the meantime I have asked nursing to start educating the daughter on how to do log roll's, bed baths, assessment for pain so that she can give her mom her pain medicines when she takes her home. Daughter continues to state that she does not have the finances to hire private duty care, respite care, or SNF placement. She is overwhelmed. Right now the patient has a Miller catheter. That may have to be discontinued depending on the daughter's comfort level with changing Miller bag. 04/25: Social work and case management are working on her case. If she has been living in this country for at least 5 years, she can have access to Medicaid. With Medicaid pending she can be accepted to hospice. If she is not been here for 5 years she may not be able to get hospice but will have to work with [employer], etc. to set up equipment at home. We will wait to hear from case management and social work. 04/24: discussed with pt's daughter for the care plan. Patient has significantly dementia, poor quality of life, advanced age, and had a fall. Patient's daughter want no surgery for pt and hope to have the hospice care for patient, but this is a late Monday, and No hospice care in the weekend. now focus on pain control, comfortable caring for patient. Consult with social work, will referral to hospice care. hopeful discharge patient with hospice care in Monday next week (4) E coli UTI April 26:Fosfomycin 1 dose orally.
[2020-04-28] MEDS: LACTATED RINGERS 1,000 ML IV SCH ×2 (05:02→17:13)
[2020-04-28] MEDS: SODIUM CHLORIDE FLUSH 0.9% 10 ML SYRINGE IVP SCH ×3 (05:03→17:13)
[2020-04-28] MEDS: MULTIVITAMIN W/MINERALS TABLET PO SCH (08:07)
[2020-04-28] MEDS: CYANOCOBALAMIN 500 MCG TABLET PO SCH (08:07)
[2020-04-28] MEDS ORDERED: polyethylene glycoL 3350 17 GM PACKET PO SCH (09:00)
[2020-04-28] MEDS: MORPHINE 2 MG/ML CARPUJECT IVP PRN (12:08)
[2020-04-28] MEDS: LORazepam 0.5 MG TABLET SL PRN (12:09)
--- NOTE | 2020-04-28 14:18 | Discharge Plan ---
Discharge Plan Problem Reviewed?: Yes Disposition: 50 Hospice/Home DC/Xfer Condition: Serious Prescriptions: LORazepam [Ativan] 0.5 mg SL Q6H PRN #15 tablet PRN Reason: Anxiety Morphine Sulfate [Morphine Sulf Oral (Roxanol)] 5 mg PO Q2H PRN #30 ml PRN Reason: Pain/Dyspnea Diet: Soft Activity Restrictions: Activity as Tolerated Instruction Topics: Lorazepam tablets, Morphine oral solution, Hospice Health Concerns: hospice care Plan of Treatment: you may followup with hospice care Care Goals: comfortable care and quality of life, and hospice care Assessment: discussed with pt's daughter about the care plan, she understood and agreed Additional Instructions or Follow Up instructions: you may followup with hospice care after d/c from hospital No Smoking: If you smoke, Please STOP! Call for help.
--- NOTE | 2020-04-28 14:22 | DISCHARGE SUMMARY ---
"Discharge Summary Admit Date: 04/24/20 Discharge Date: 04/28/20 Discharging Provider: Bonifacio Graham Condition at Discharge: Serious Discharge Disposition: 50 Hospice/Home DC/Xfer Discharge Facility Name: home - DIAGNOSES Discharge Diagnoses with Status of Each Condition: (1) Hip fracture, right Patient Had a fall in the home and had right hip fracture. Patient's daughter choose hospice care for patient, Declined to have surgery. Patient has a history dementia. (2) Dementia pt had advance dementia, And a poor quality of life, patient's daughter choose hospice care for patient. Hospice was referral., hospice will see the patient on tomorrow (3) Encounter for hospice care Patient 's daughter chosed his hospice for patient, health social work professor was consulted for patient safely discharge planning. Hospice was referred, hospice will see patient on tomorrow, patient is prescribed morphine and Ativan PRN. (4) E coli UTI Urinalysis showed patient had E. coli UTI, patient was given Fosfomycin 1 dose orally. - HPI History of Present Illness: This is a 89 years old female with a past medical history significant for dementia without home medications, who bought by her daughter to ER complain of right hip and pelvic pain. Patient is Nigerien speaking only, and daughter translates for her peer to help provider medical hx. Patient was in the bathroom and forgot to pull her pants up and tried to walk, and had a fall. pt denies loss of conscience, denies headache or other pain. CAT scan of the head, chest x-ray are unremarkable. X-ray of the hip reveals infratrochanteric fracture of the proximal right femur. Routine laboratory test show hemoglobin 10.9 otherwise unremarkable. Patient is afebrile and hemodynamic stable at this time. ER already called surgeon. pt's daughter report Surgeon already discussed with her for the care plan. Pt's daughter state because pt's advanced dementia, poor quality of life, and advanced age, now pt has a fall, she choose no surgery for pt, and hope to have hospice care for pt. - CONSULTS | PROCEDURES Consultations: hospice care Procedures: Discharged with hospice care - HOSPITAL COURSE Hospital Course: Patient was admitted for fall evaluation. pt had X-ray of the hip reveals infratrochanteric fracture of the proximal right femur.Patient's daughter choose no surgery for patient. Patient has history of advanced dementia. Patient's daughter also choose to hospice care for patient. Unfortunately patient has no insurance, health social work professor was consulted. Patient obtained Financial support from [email or web address] to have hospice care. Patient is DC'd for hospice care in home with morphine and Ativan PRN. - ALLERGIES Allergies/Adverse Reactions: Allergies Allergy/AdvReac Type Severity Reaction Status Date / Time No Known Drug Allergies Allergy Verified 04/24/20 14:42 - MEDICATIONS Home Medications: Ambulatory Orders Medication Instructions Recorded Confirmed LORazepam [Ativan] 0.5 mg SL Q6H PRN #15 tablet 04/28/20 Morphine Sulfate [Morphine Sulf 5 mg PO Q2H PRN #30 ml 04/28/20 Oral (Roxanol)] - PHYSICAL EXAM AT DISCHARGE General Appearance: positive: No acute distress, Alert. negative: Lethargic Eyes Bilateral: positive: Normal inspection, PERRL, No lid inflammation ENT: positive: ENT inspection nml, No signs of dehydration. negative: Dry mucous membranes Neck: positive: Nml inspection, Thyroid nml, Trachea midline. negative: Thyromegaly, Stiff neck, Tracheal deviation Respiratory: positive: Chest non-tender, No respiratory distress. negative: Wheezes, Rales Cardiovascular: positive: Regular rate & rhythm, No murmur. negative: Tachycardia, Bradycardia, Systolic murmur, Diastolic murmur Peripheral Pulses: positive: 2+ Abdomen: positive: Non-tender, Nml bowel sounds, No distention. negative: Tenderness Back: positive: Nml inspection Skin: positive: Color nml, Warm, Dry. negative: Cyanosis, Diaphoresis, Pallor Extremities: positive: Nml appearance Neurologic/Psychiatric: positive: Sensation nml, Mood/affect nml. negative: Sensory loss, Facial droop, Slurred/abnml speech, Depressed mood/affect - LABS Result Diagrams: 04/26/20 07:38 04/26/20 07:38 - FOLLOW UP Follow Up: followup with hospice care - TIME SPENT Time Spent in Discharge (Minutes): 30"
== END 2020-04-28 18:25 | disposition hospice, home (50) | DRG 536 ==
LOC: EDUNIT# → ED 14:18 → MS2 17:11
PROVIDERS: ADMIT Specialist; ATTEND Nurse Practitioner Gerontology
DX: S72.141A Displaced intertrochanteric fracture of right femur, initial encounter for closed fracture (principal); N39.0 Urinary tract infection, site not specified; B96.20 Unspecified Escherichia coli [E. coli] as the cause of diseases classified elsewhere; F03.90 Unspecified dementia, unspecified severity, without behavioral disturbance, psychotic disturbance, mood disturbance, and anxiety; W01.0XXA Fall on same level from slipping, tripping and stumbling without subsequent striking against object, initial encounter; Y93.E8 Activity, other personal hygiene; Y92.002 Bathroom of unspecified non-institutional (private) residence as the place of occurrence of the external cause; Z51.5 Encounter for palliative care
CPT/HCPCS: 36415; 70450; 71101; 73502; 80048; 80053; 81001; 82607; 82728; 83540; 83615; 83690; 84466; 85025; 85045; 85610; 86850; 86900; 86901; 87077; 87086; 87181; 93005; 96361; 96374; 99284; 99285; A9270; J1170; J7120; J8499

== ENCOUNTER 2020-04-28 18:34 | Outpatient (CLI) | payer SELFPAY | END 2020-04-28 18:35 | disposition home or self-care (01) | LOC: EMS 18:34 | PROVIDERS: ATTEND Surgery | DX: S72.001A Fracture of unspecified part of neck of right femur, initial encounter for closed fracture (principal); F03.90 Unspecified dementia, unspecified severity, without behavioral disturbance, psychotic disturbance, mood disturbance, and anxiety | CPT/HCPCS: A0425; A0428 ==

== ENCOUNTER 2020-05-11 18:58 | Outpatient (CLI) | payer SELFPAY | END 2020-05-11 18:59 | disposition EMS.NT | LOC: EMS 18:58 | PROVIDERS: ATTEND Surgery ==